=== PATIENT | female | born 1995 | race Caucasian/White ===

== ENCOUNTER 2016-03-20 10:46 | Emergency (ER) | payer BC ==
[~2016-03-20] VITALS: Ht 165.1 cm; Wt 68.5 kg
[~2016-03-20 10:46] MED LIST: BCPILLS PO; CETI10TA84 PO; LISD30CA4 PO
[2016-03-20 10:48] VITALS: TEMP 37.1; Ht 165.1 cm; Wt 68.5 kg
[2016-03-20] MEDS ORDERED: LEVO-14 PO (11:10)
--- NOTE | 2016-03-20 11:53 | DIAGNOSTIC IMAGING REPORT ---
ULTRASOUND LEFT LOWER EXTREMITY VENOUS CLINICAL HISTORY: Left leg pain and swelling. Recent travel. COMPARISON STUDY: No priors. TECHNIQUE: Real-time, grayscale, and color Doppler sonography of the deep veins of the left lower extremity was performed from the inguinal crease to the calf. Compression and augmentation were utilized. FINDINGS: There is no sonographic evidence of deep venous thrombosis identified in the left lower extremity. The common femoral, superficial femoral, and popliteal veins are patent and normally compressible. The greater saphenous vein and the profunda femoris vein at the junction with the common femoral vein are clear. The visualized calf veins are patent. IMPRESSION: There is no sonographic evidence of deep venous thrombosis identified in the left lower extremity. Electronically signed by: Moises Card M.D. 03/20/2016 11:52 AM Dictated Date/Time: 03/20/2016 11:51 AM
[2016-03-20 12:12] VITALS: BP 119/73; PULSE 90; O2SAT 100
--- NOTE | 2016-03-21 14:21 | EMERGENCY ROOM VISIT NOTE ---
History First contact with patient: 10:58 Chief Complaint: LEG PAIN,LEG INJURY Stated Complaint: LEG PAIN History of Present Illness The patient is a 20 year old female who presents to the Emergency Room with complaints of left leg pain for the past few weeks. The patient went home to [place] for the holiday. 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 She is now with pain primarily along the medial aspect of her left posterior thigh that radiates into the medial aspect of her left calf. She is not on control. There is no family history of coagulopathy. She does not have chest pain or shortness of breath. No injury to otherwise explain her symptoms. Review of Systems More than 10 systems were reviewed and otherwise negative with the exception of history of present illness. Past Medical/Surgical History No pertinent chronic medical disease Family History Patient reports no known family medical history. Social History Smoking Status: Never Smoker Marital Status: single Occupation Status: [employer] student Current/Historical Medications Scheduled Levocetirizine Dihydrochloride (Levocetirizine Dihydrochl), 5 MG PO DAILY Lisdexamfetamine Dimesylate (Vyvanse), 30 MG PO DAILY Allergies Coded Allergies: Nut Tree (Verified Allergy, Unknown, unknown, 03/20/16) Sesame Seed (Verified Allergy, Unknown, unknown, 03/20/16) Physical Exam Vital Signs Date Time Temp Pulse Resp B/P Pulse Ox O2 Delivery O2 Flow Rate FiO2 03/20/16 12:12 90 16 119/73 100 03/20/16 10:48 37.1 87 18 119/91 100 Room Air Pain Rating (0-10): 0 Physical Exam VITALS: Vitals are noted on the nurse's note and reviewed by myself. Vital signs stable. GENERAL: Well-developed, well-nourished, white female, who is in no acute distress and resting comfortably. Patient is cooperative with the examination. HEAD: Normocephalic atraumatic. HEART: Regular rate and rhythm without murmurs gallops or rubs. LUNGS: Clear to auscultation bilaterally without wheezes, rales or rhonchi. No retractions or accessory muscle use. MUSCULOSKELETAL: No muscle atrophy, erythema, or edema noted. Mild tenderness appreciated over the medial left thigh into the left calf. No palpable cord. Patient is with full strength and range of motion of the left lower extremity. NEURO: Patient was alert and oriented to person place and time. CN II through XII grossly intact. Medical Decision & Procedures ER Provider Diagnostic Interpretation: ULTRASOUND LEFT LOWER EXTREMITY VENOUS CLINICAL HISTORY: Left leg pain and swelling. Recent travel. COMPARISON STUDY: No priors. TECHNIQUE: Real-time, grayscale, and color Doppler sonography of the deep veins of the left lower extremity was performed from the inguinal crease to the calf. Compression and augmentation were utilized. FINDINGS: There is no sonographic evidence of deep venous thrombosis identified in the left lower extremity. The common femoral, superficial femoral, and popliteal veins are patent and normally compressible. The greater saphenous vein and the profunda femoris vein at the junction with the common femoral vein are clear. The visualized calf veins are patent. IMPRESSION: There is no sonographic evidence of deep venous thrombosis identified in the left lower extremity. ED Course Physical exam and history were performed. Nursing notes and EMR were reviewed. Patient appears to have left leg pain for the past few weeks. She does not describe injury or trauma to explain her symptoms. She is concerned about DVT and ultrasound was performed. Ultrasound does not show evidence of acute DVT. Overall the patient's symptoms are likely musculoskeletal in nature. They should improve with [id number] analgesics. I recommended the patient follow with her primary care physician with any ongoing or persisting symptoms. She was otherwise invited back to the ER with any new, worsening, or concerning episodes. She voiced understanding and was pleased with plan of care. The chart was completed utilizing [employer] Speech Voice Recognition Software. Grammatical errors, random word insertions, pronoun errors, and incomplete sentences are an occasional consequence of this system due to software limitations, ambient noise, and hardware issues. Any formal questions or concerns about the content, text, or information contained within the body of this dictation should be directly addressed to the provider for clarification. . Medical Decision Differential diagnosis: Etiologies such as DVT, musculoskeletal, infection, joint effusion, trauma, lymphedema, idiopathic, CHF, as well as others were entertained.. Impression Primary Impression: Leg pain, left Departure Information Dispostion Home / Self-Care Condition GOOD Referrals No Doctor, Assigned (PCP) Forms HOME CARE DOCUMENTATION FORM, IMPORTANT VISIT INFORMATION Patient Instructions A Signature Page, Next Gen Illumination Additional Instructions You were seen and evaluated today on an emergency basis only. This is not a substitute for, or an effort to provide, complete comprehensive medical care. It is not possible to recognize and treat all injuries or illnesses in a single emergency department visit. For this reason it is recommended that you followup with your primary care physician next week for ongoing care and evaluation. For baseline pain relief you may alternate ibuprofen and acetaminophen every 4 hours for pain control. Take 600 mg ibuprofen (Advil) and then 4 hours later take 1000 mg acetaminophen (Tylenol). Do not take more than 3000 mg acetaminophen in a single day. You are welcome to return to the emergency department anytime with new, worsening, or concerning symptoms.
== END 2016-03-20 12:15 | disposition home or self-care (01) ==
LOC: C.EDB 10:48 → C.EDD 12:15
DX: M79.605 Pain in left leg (principal)